=== PATIENT | male | born 1980 | race African-American/Black ===

== ENCOUNTER 2017-05-27 16:50 | Emergency (ER) | payer SELFPAY ==
[~2017-05-27] VITALS: Ht 177.8 cm; Wt 97.5 kg
[~2017-05-27 16:50] MED LIST: ALBU8I INH; FLUT1SPR9 EACH NARE; LEVA500T PO; OMEP20TA39 PO; SIME80CH CHEW
[2017-05-27 16:52] VITALS: BP 133/76; PULSE 69; RESP 14; TEMP 98.5; O2SAT 97
[2017-05-27] MEDS ORDERED: IBUP800T23 PO (18:38)
--- NOTE | 2017-05-27 18:39 | PD ---
HPI Chief Complaint: Skin Problem Time Seen by Provider: 18:36 Travel History International Travel<30 days: No Contact w/Intl Traveler<30days: No Traveled to known affect area: No History of Present Illness HPI 36-year-old male with with complaint of 3 different lacerations; one to the right forearm, right hand, and right fourth finger from hitting glass today. He is not up-to-date on his tetanus vaccination declined tetanus at this time. Denies paresthesias, loss of sensation, decreased range motion, decreased strength to the affected hand and extremity. Denies fever, vomiting. Has no other medical complaints. Symptoms are mild in severity. Denies allergies. No other modifying factors or associated signs and symptoms. PFSH Past Medical History Hx Anticoagulant Therapy: No Cardiovascular Problems: No Chemotherapy: No Cerebrovascular Accident: No Diabetes: No Diminished Hearing: No Respiratory: No Social History Alcohol Use: Yes Tobacco Use: Yes Substance Use: Yes (MARIJUANA) Allergies-Medications (Allergen,Severity, Reaction): Coded Allergies: No Known Allergies (Verified , 05/27/17) Reported Meds & Prescriptions Reported Meds & Active Scripts Active Ibuprofen 800 Mg Tab 800 Mg PO Q6HR PRN Review of Systems Except as stated in HPI: all other systems reviewed are Neg Physical Exam Narrative GENERAL: Well-nourished, well-developed male patient, in no acute distress SKIN: Warm and dry. Right anterior distal wrist with approximately once an liter cut. Right thenar eminence area with approximately 1.5 centimeter laceration. Right fourth finger in between the PIP and DIP joints with approximately 1cm cut/skin tear. All areas with bleeding controlled. No signs of infection. Right hand with full range of motion at all finger joints and sensory intact. HEAD: Atraumatic. Normocephalic. EYES: Pupils equal and round. No scleral icterus. No injection or drainage. ENT: Mucosa pink and moist. Airway patent. NECK: Trachea midline. CARDIOVASCULAR: Regular rate. RESPIRATORY: No accessory muscle use. GASTROINTESTINAL: Flat. MUSCULOSKELETAL: No obvious deformities. No clubbing. No cyanosis. No edema. NEUROLOGICAL: Awake and alert. Oriented 3. No obvious cranial nerve deficits. Motor grossly within normal limits. Normal speech. PSYCHIATRIC: Appropriate mood and affect; insight and judgment normal. Data Data Last Documented VS Vital Signs Date Time Temp Pulse Resp B/P Pulse Ox O2 Delivery O2 Flow Rate FiO2 8/16/17 16:52 98.5 69 14 133/76 97 Room Air MDM Medical Decision Making Medical Screen Exam Complete: Yes Emergency Medical Condition: Yes Medical Record Reviewed: Yes Differential Diagnosis Cut, laceration, abrasion Narrative Course 36-year-old male with cuts to his right forearm and right fourth finger. And a laceration to his right hand to the thenar eminence area. He is not up-to-date on his tetanus vaccination and declines tetanus at this time. See my Procedure note laceration repair. Ibuprofen prescribed for home. Instructed patient to follow up with primary care provider. Patient verbalizes understanding and agreement with treatment plan. Patient is medically cleared and stable for discharge. Discussed reasons to return to the emergency department. Patient agrees with treatment plan. The patients vital signs are stable and the patient is stable for outpatient follow-up and treatment. Patient discharged home, stable and in no acute distress. Procedures Procedure Narrative LACERATION LOCATION: Right thenar eminence LENGTH: 1.5 cm NUMBER OF STITCHES/MARCELLA: 3 simple interrupted sutures REPAIR: The area of the laceration was prepped with Betadine and sterilely draped. The laceration was infiltrated with 1% lidocaine. The wound was copiously irrigated and explored without evidence of foreign body, tendon injury or neurovascular injury. The wound was closed using 4-0 Prolene. This was a single layer repair. A sterile dressing was applied. The patient was advised to keep the dressing clean and dry. Patient tolerated the procedure well. Diagnosis Primary Impression: Cut Additional Impressions: Cut of finger Laceration of right hand Qualified Code: S61.411A - Laceration of right hand without foreign body, initial encounter Referrals: Primary Care Physician Patient Instructions: Care For Your Stitches (ED), Finger Laceration (ED), General Instructions, Laceration (ED) Departure Forms: Tests/Procedures, Work Release Enter return to work date: May 29, 2017 Additional Instructions: Keep area clean and dry Ibuprofen Or Tylenol as directed and as needed for pain and inflammation Ice pack to area as needed to decrease pain Return to the emergency department or follow-up with primary care provider in 7- 10 days for suture removal Follow up with primary care provider within 2-4 days Return to the emergency department immediately with worsening of symptoms, particularly if reddened streaks up or down the affected extremity from the suture site, fever, numbness/tingling in the affected extremity, loss of sensation in the affected extremity, severe swelling of the affected Med/Other Pt SpecificInfo: Prescription(s) given Scripts Ibuprofen 800 Mg Dep491 Mg PO Q6HR PRN (PAIN) #30 TAB Ref 0 Prov:Kimberly Garcia 05/27/17 Disposition: 01 DISCHARGE HOME Condition: Stable Kimberly Garcia May 27, 2017 18:38
[2017-05-28] MEDS ORDERED: ULTR50TA5 PO (01:37)
[2017-05-28] MEDS ORDERED: ZOFR4TAB3 SL (01:37)
== END 2017-05-27 19:09 | disposition home or self-care (01) ==
LOC: NEPK 16:50
DX: S61.411A Laceration without foreign body of right hand, initial encounter (principal); W25.XXXA Contact with sharp glass, initial encounter
CPT/HCPCS: 12001

== ENCOUNTER 2017-05-28 00:08 | Emergency (ER) | payer SELFPAY ==
[~2017-05-28] VITALS: Ht 177.8 cm; Wt 97.0 kg
[~2017-05-28 00:08] MED LIST changes: -ALBU8I INH; -FLUT1SPR9 EACH NARE; +IBUP800T23 PO; -LEVA500T PO; -OMEP20TA39 PO; -SIME80CH CHEW
[2017-05-28 00:10] VITALS: BP 143/84; PULSE 66; RESP 14; TEMP 99.1; O2SAT 96
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
--- NOTE | 2017-05-28 01:36 | RADRPT ---
EXAM DATE/TIME: 05/28/2017 01:20 [facility] COMPARISON: No previous studies available for comparison. INDICATIONS : Headaches with dizziness. RADIATION DOSE: 35.51 CTDIvol (mGy) MEDICAL HISTORY : None SURGICAL HISTORY : None. ENCOUNTER: Initial ACUITY: 1 day PAIN SCALE: 2/10 LOCATION: cranial TECHNIQUE: Multiple contiguous axial images were obtained of the head. Using automated exposure control and adj ustment of the mA and/or kV according to patient size, radiation dose was kept as low as reasonably a chievable to obtain optimal diagnostic quality images. DICOM format image data is available electro nically for review and comparison. FINDINGS: CEREBRUM: The ventricles are normal for age. No evidence of midline shift, mass lesion, hemorrhage or acute in farction. No extra-axial fluid collections are seen. POSTERIOR FOSSA: The cerebellum and brainstem are intact. The 4th ventricle is midline. The cerebellopontine angle i s unremarkable. EXTRACRANIAL: The visualized portion of the orbits is intact. SKULL: The calvaria is intact. No evidence of skull fracture. CONCLUSION: Negative noncontrast CT brain. Dewayne Aparicio MD on May 28, 2017 at 1:34 Board Certified Radiologist. This report was verified electronically.
[2017-05-28] MEDS ORDERED: ZOFR4TAB3 SL (01:37)
[2017-05-28] MEDS ORDERED: ULTR50TA5 PO (01:37)
== END 2017-05-28 02:18 | disposition home or self-care (01) ==
LOC: NEPC 00:08
DX: S06.0X0A Concussion without loss of consciousness, initial encounter (principal); S00.83XA Contusion of other part of head, initial encounter; R42 Dizziness and giddiness; Z72.0 Tobacco use; W18.30XA Fall on same level, unspecified, initial encounter
CPT/HCPCS: 70450; 99284

== ENCOUNTER 2017-06-09 13:58 | Emergency (ER) | payer OTHER ==
[~2017-06-09 13:58] MED LIST changes: +ULTR50TA5 PO; +ZOFR4TAB3 SL
[2017-06-09 14:00] VITALS: BP 143/74; PULSE 59; RESP 14; TEMP 98.4; O2SAT 98
--- NOTE | 2017-06-09 14:25 | PD ---
HPI . suture removal Chief Complaint: Wound/Suture/Staple Re-Check Time Seen by Provider: 14:16 Travel History International Travel<30 days: No Contact w/Intl Traveler<30days: No Traveled to known affect area: No History of Present Illness HPI 37- year old male presents to the ED to have three sutures on his right hand removed. The patient reports the sutures were initially placed 05/27/17 or 05/28 due to a laceration from glass. PFSH Past Medical History Hx Anticoagulant Therapy: No Cardiovascular Problems: No Chemotherapy: No Cerebrovascular Accident: No Diabetes: No Diminished Hearing: No Respiratory: No Social History Alcohol Use: Yes Tobacco Use: Yes Substance Use: Yes (MARIJUANA) Allergies-Medications (Allergen,Severity, Reaction): Coded Allergies: No Known Allergies (Verified , 06/09/17) Reported Meds & Prescriptions Reported Meds & Active Scripts Active No Active Prescriptions or Reported Medications Review of Systems General / Constitutional: No: Fever, Chills, Weight Gain, Weight Loss, Other Eyes: No: Diploplia, Blurred Vision, Photophobia, Drainage, Redness, Foreign Body Sensation, Pain, Tearing, Blind Spots, Visual changes, Blindness, Other HENT: No: Headaches, Vertigo, Lightheadedness, Sore Throat, Rhinitis, Rhinorrhea, Congestion, Nosebleed, Neck Stiffness, Neck Pain, Masses, Gingival Bleeding, Dental Difficulties, Ear Discharge, Earache, Other Cardiovascular: No: Chest Pain or Discomfort, Palpitations, Irregular Rhythm, Tachycardia, Diaphoresis, Syncope, Dyspnea on exertion, Varicosities, Edema, Cyanosis, Varicosities, Phlebitis, Claudication, Other Respiratory: No: Cough, Shortness of Breath, Wheezing, Sneezing, Orthopnea, Hemoptysis, Stridor, Night Sweats, Pleuritic Pain, Other Gastrointestinal: No: Nausea, Vomiting, Diarrhea, Abdominal Pain, Hematemesis, Hematochezia, Constipation, Changes in Bowel Habits, Indigestion, Dysphagia, Loss of Appetite, Other Genitourinary: No: Urgency, Frequency, Dysuria, Nocturia, Hematuria, Decreased Urinary Output, Oliguria, Hesitancy, Dribbling, Incontinence, Pelvic Pain, Flank Pain, Dyspareunia, Discharge, Dysmenorrhea, Menorrhagia, Metorrhagia, Vaginal Bleeding, Other Musculoskeletal: No: Myalgias, Arthralgias, Limited ROM, Weakness, Cramping, Edema, Pain, Atrophy, Other Skin: Positive Other (Healing laceration to right hand), No Rash, No Itching, No Dryness, No Lumps, No Hives, No Change in Pigmentation, No Change in nails, No Alopecia, No Lesions, No Breast Lumps, No Breast Tenderness, No Breast Swelling Neurologic: No: Weakness, Dizziness, Syncope, Focal Abnormalities, Coordination Problem, Tremor, Ataxia, Headache, Change in Mentation, Slurred Speech, Paresthesia, Incontinence, Seizures, Sensory Disturbance, Other Psychiatric: No: Anxiety, Depression, Suicidal Ideations, Disorder of Thought, Mood Disorder, Substance Abuse, Homicidal Ideation, Other Endocrine: No: Heat Intolerance, Cold Intolerance, Polyuria, Polydipsia, Other Hematologic/Lymphatic: No: Easy Bruising, Lymph Node Enlargement, Other Physical Exam Narrative GENERAL: AAO x 3. NAD. SKIN: Warm and dry.Healed laceration to right hand with [address], no evidence of infection HEAD: Atraumatic. Normocephalic. EYES: Pupils equal and round. No scleral icterus. No injection or drainage. ENT: No nasal bleeding or discharge. Mucous membranes pink and moist. NECK: Trachea midline. No JVD. CARDIOVASCULAR: Regular rate and rhythm. RESPIRATORY: No accessory muscle use. Clear to auscultation. Breath sounds equal bilaterally. GASTROINTESTINAL: Visual inspection appears normal. MUSCULOSKELETAL: Extremities without clubbing, cyanosis, or edema. No obvious deformities. NEUROLOGICAL: Awake and alert. No obvious cranial nerve deficits. Motor grossly within normal limits. Five out of 5 muscle strength in the arms and legs. Normal speech. PSYCHIATRIC: Appropriate mood and affect; insight and judgment normal. Data Data Last Documented VS Vital Signs Date Time Temp Pulse Resp B/P (MAP) Pulse Ox O2 Delivery O2 Flow Rate FiO2 06/09/17 14:33 06/09/17 14:00 98.4 59 14 98 MDM Medical Decision Making Medical Screen Exam Complete: Yes Emergency Medical Condition: Yes Medical Record Reviewed: Yes Differential Diagnosis Suture Removal, wound dehiscence, cellulitis Narrative Course 37-year-old male here for suture removal to his right palm. There is no evidence of wound dehiscence or cellulitis. Patient gave verbal consent to removal. 3 sutures removed without incident. Patient verbalized understanding of instructions, questions were answered, and thanked me for their care. I advised them if their condition worsens, please return to the nearest emergency room for further care. Procedures Procedure Narrative suture removal patient gave verbal consent area cleaned and 3 sutures removed patient tolerated w/o incident Diagnosis Primary Impression: Visit for suture removal Patient Instructions: General Instructions Med/Other Pt SpecificInfo: No Change to Meds Scripts No Active Prescriptions or Reported Meds Disposition: 01 DISCHARGE HOME Condition: Stable Cara Jackson Jun 09, 2017 14:25
== END 2017-06-09 15:00 | disposition home or self-care (01) ==
LOC: NEPK 13:58
DX: Z48.02 Encounter for removal of sutures (principal); Z72.0 Tobacco use
CPT/HCPCS: 99281

== ENCOUNTER 2017-07-06 18:33 | Emergency (ER) | payer OTHER ==
[~2017-07-06] VITALS: Ht 177.8 cm; Wt 102.0 kg
[2017-07-06 18:41] VITALS: BP 183/80; PULSE 75; RESP 16; TEMP 98.6
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
[2017-07-06 19:15] LABS: AUTOMATED NEUTROPHIL # 3.1 TH/MM3 (1.8-7.7); BASOPHIL % 0.5 % (0.0-2.0); EOSINOPHIL # 0.1 TH/MM3 (0-0.4); EOSINOPHIL % 1.9 % (0.0-4.0); HEMATOCRIT 43.2 % (39.0-51.0); HEMO FLAGS DIFF FINAL; LYMPHOCYTE # 2.3 TH/MM3 (1.0-4.8); MEAN CELL VOLUME 94.7 FL (80.0-100.0); MEAN CORPUSCULAR HEMOGLOBIN 31.1 PG (27.0-34.0); MEAN CORPUSCULAR HGB CONC 32.8 % (32.0-36.0); MONO % 10.9 % (0.0-8.0); NEUT % 49.7 % (16.0-70.0); PLATELET COUNT 204 TH/MM3 (150-450); RED BLOOD COUNT 4.56 MIL/MM3 (4.50-5.90); RED CELL DISTRIBUTION WIDTH 13.5 % (11.6-17.2); WHITE BLOOD COUNT 6.3 TH/MM3 (4.0-11.0)
[2017-07-06 19:35] LABS: BICARBONATE 26.3 MEQ/L (21.0-32.0); POTASSIUM 4.2 MEQ/L (3.5-5.1)
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
== END 2017-07-06 20:44 | disposition home or self-care (01) ==
LOC: NEPD 18:33
DX: S16.1XXA Strain of muscle, fascia and tendon at neck level, initial encounter (principal); M54.6 Pain in thoracic spine; V89.2XXA Person injured in unspecified motor-vehicle accident, traffic, initial encounter
CPT/HCPCS: 71010; 72125; 80048; 80307; 85025; 99285

== ENCOUNTER 2017-10-16 17:07 | Emergency (ER) | payer SELFPAY ==
[~2017-10-16] VITALS: Ht 180.3 cm; Wt 100.0 kg
[2017-10-16 17:08] VITALS: BP 170/77; PULSE 67; RESP 16; TEMP 99; O2SAT 95
[2017-10-16] MEDS ORDERED: IBUP1TAB7 PO (18:41)
[2017-10-16] MEDS ORDERED: AMOX500C PO (18:41)
--- NOTE | 2017-10-16 18:41 | PD ---
HPI Chief Complaint: ENT Complaint Time Seen by Provider: 18:25 Travel History International Travel<30 days: No Contact w/Intl Traveler<30days: No Traveled to known affect area: No History of Present Illness HPI 37-year-old male presents to emergency department complaining of right ear pain 1 week. Denies ear drainage. Reports nasal congestion. Denies sore throat, cough. Denies fevers. Denies nausea, vomiting. Has not taken any medication or tried any treatments to alleviate his symptoms. No known relieving or aggravating factors. Symptoms are mild in severity. Rates pain 7/10. Describes it as a throbbing sensation. Pain radiates to his temporal area. No primary care provider. No known allergies. Denies significant past medical history. Has no other medical complaints. No other modifying factors or associated signs and symptoms. PFSH Past Medical History Hx Anticoagulant Therapy: No Cardiovascular Problems: No Chemotherapy: No Cerebrovascular Accident: No Diabetes: No Diminished Hearing: No Respiratory: No Past Surgical History Prostatectomy: Yes Social History Alcohol Use: Yes Tobacco Use: Yes Substance Use: Yes ("weed") Allergies-Medications (Allergen,Severity, Reaction): Coded Allergies: No Known Allergies (Verified , 06/29/17) Reported Meds & Prescriptions Reported Meds & Active Scripts Active Ibuprofen 800 Mg Tab 800 Mg PO Q6HR PRN Amoxicillin 500 Mg Cap 500 Mg PO BID 10 Days Review of Systems Except as stated in HPI: all other systems reviewed are Neg Physical Exam Narrative GENERAL: Well-nourished, well-developed black male patient, in no acute distress ; afebrile, nontoxic-appearing SKIN: Warm and dry. No rash. HEAD: Atraumatic. Normocephalic. EYES: Pupils equal and round. No scleral icterus. No injection or drainage. EARS: Bilateral pinnae and external canals appear within normal limits. Right tympanic membrane with erythema, loss of landmarks, and with dullness; without perforation. ENT: Mucosa pink and moist. Oral Pharynx without erythema; without edema or exudates. No uvular edema. No uvular, palatal, or tonsillar deviation. Airway patent. NECK: Trachea midline. No lymphadenopathy. CARDIOVASCULAR: Regular rate. RESPIRATORY: No accessory muscle use. GASTROINTESTINAL: Flat. MUSCULOSKELETAL: No obvious deformities. No clubbing. No cyanosis. No edema. NEUROLOGICAL: Awake and alert. Oriented 3. No obvious cranial nerve deficits. Motor grossly within normal limits. Normal speech. Moves all extremities. 5/5 strength to all extremities. PSYCHIATRIC: Appropriate mood and affect; insight and judgment normal. Data Data Last Documented VS Vital Signs Date Time Temp Pulse Resp B/P (MAP) Pulse Ox O2 Delivery O2 Flow Rate FiO2 10/16/17 17:08 99.0 67 16 170/77 (108) 95 Room Air MDM Medical Decision Making Medical Screen Exam Complete: Yes Emergency Medical Condition: Yes Medical Record Reviewed: Yes Differential Diagnosis Otitis media, otitis externa, foreign body, cerumen impaction Narrative Course 37-year-old male with right otitis media. Afebrile nontoxic appearing. Denies fever, vomiting. Amoxicillin, ibuprofen prescribed for home. Instructed patient to follow up with primary care provider. Patient verbalizes understanding and agreement with treatment plan. Patient is medically cleared and stable for discharge. Discussed reasons to return to the emergency department. Patient agrees with treatment plan. The patients vital signs are stable and the patient is stable for outpatient follow-up and treatment. Patient discharged home, stable and in no acute distress. Diagnosis Primary Impression: Otitis media, right Qualified Codes: H66.91 - Otitis media, unspecified, right ear Referrals: Primary Care Physician Patient Instructions: General Instructions, Serous Otitis Media (ED) Additional Instructions: Take antibiotics as prescribed and complete full course Ibuprofen or Tylenol as directed and as needed to reduce pain and fever [id number] antihistamines or decongestants as directed and as needed for symptom management Avoid getting water in the ears Do not put anything in the ears; including Q-tips Follow-up with primary care provider Return to the emergency department immediately with worsening of symptoms Med/Other Pt SpecificInfo: Prescription(s) given Scripts Ibuprofen (Ibuprofen) 800 Mg Tab 800 MG PO Q6HR Y for PAIN, #30 TAB 0 Refills Prov: Kimberly Garcia 10/16/17 Amoxicillin (Amoxicillin) 500 Mg Cap 500 MG PO BID for Infection for 10 Days, #20 CAP 0 Refills Prov: Kimberly Garcia 10/16/17 Disposition: 01 DISCHARGE HOME Condition: Stable Kimberly Garcia Oct 16, 2017 18:41
== END 2017-10-16 18:57 | disposition home or self-care (01) ==
LOC: NEPD 17:07
DX: H66.91 Otitis media, unspecified, right ear (principal); Z72.0 Tobacco use
CPT/HCPCS: 99283

== ENCOUNTER 2017-10-30 14:20 | Emergency (ER) | payer SELFPAY ==
[~2017-10-30] VITALS: Ht 177.8 cm; Wt 100.0 kg
[~2017-10-30 14:20] MED LIST changes: +AMOX500C PO; +IBUP1TAB7 PO; -IBUP800T23 PO; -ULTR50TA5 PO; -ZOFR4TAB3 SL
[2017-10-30 14:21] VITALS: BP 150/83; PULSE 93; RESP 14; TEMP 97.9; O2SAT 97
--- NOTE | 2017-10-30 15:45 | PD ---
HPI Chief Complaint: ENT Complaint Time Seen by Provider: 15:14 Travel History International Travel<30 days: No Contact w/Intl Traveler<30days: No Traveled to known affect area: No History of Present Illness HPI Patient is a 37-year-old male presenting to emergency department for evaluation of right ear "popping". Patient states that he was in the emergency department last week with ear pain and was prescribed antibiotics, he states that he hasn' t been taking them consistently. He denies any current ear pain but states when he yawns and on occasion randomly has ear popping. He denies any muffled hearing, fever, chills, headache, chest pain, shortness of breath, sore throat or nasal congestion. No alleviating or exacerbating factors, symptoms started randomly and are intermittent. PFSH Past Medical History Medical History: Denies Significant Hx Hx Anticoagulant Therapy: No Respiratory: No Tetanus Vaccination: Unknown Influenza Vaccination: No Past Surgical History Surgical History: No Previous Surgery Prostatectomy: Yes Social History Alcohol Use: Yes (occu) Tobacco Use: Yes (once a day 2-3) Substance Use: Yes ("weed" occu) Allergies-Medications (Allergen,Severity, Reaction): Coded Allergies: No Known Allergies (Verified , 06/29/17) Reported Meds & Prescriptions Reported Meds & Active Scripts Active Ibuprofen 800 Mg Tab 800 Mg PO Q6HR PRN Amoxicillin 500 Mg Cap 500 Mg PO BID 10 Days Review of Systems Except as stated in HPI: all other systems reviewed are Neg HENT: Positive: Earache (popping) Physical Exam Narrative GENERAL: Well-developed, well-nourished, alert male. Resting comfortably in no acute distress. EARS: Bilateral pinnae and external canals appear within normal limits. Bilateral tympanic membranes without erythema, dullness or perforation. SKIN: Warm and dry. HEAD: Normocephalic. EYES: No scleral icterus. No injection or drainage. NECK: Supple, trachea midline. No JVD or lymphadenopathy. CARDIOVASCULAR: Regular rate and rhythm without murmurs, gallops, or rubs. RESPIRATORY: Breath sounds equal bilaterally. No accessory muscle use. GASTROINTESTINAL: Abdomen soft, non-tender, nondistended. MUSCULOSKELETAL: No cyanosis, or edema. BACK: Nontender without obvious deformity. No CVA tenderness. Data Data Last Documented VS Vital Signs Date Time Temp Pulse Resp B/P (MAP) Pulse Ox O2 Delivery O2 Flow Rate FiO2 10/30/17 14:21 97.9 93 14 150/83 (105) 97 [facility] Medical Decision Making Medical Screen Exam Complete: Yes Emergency Medical Condition: No Interpretation(s) Vital Signs Date Time Temp Pulse Resp B/P (MAP) Pulse Ox O2 Delivery O2 Flow Rate FiO2 10/30/17 14:21 97.9 93 14 150/83 (105) 97 Differential Diagnosis Otitis media versus otitis externa versus effusion versus other Narrative Course Patient presented for evaluation of ear popping. He had no other complaints at this time. He has normal vital signs. Exam is unremarkable. A medical screening exam was performed: At the time of evaluation the presenting medical condition was determined not to be of an emergent nature. The patient was given the option of receiving additional care, but declined. Patient was given options for additional community resources from which to obtain care. The Patient Has Been advised to seek medical attention for their presenting complaint. The patient has been advised to return to the ER at any time if an emergent condition develops. Diagnosis Primary Impression: Encounter for medical screening examination Condition: Stable Shirin Tobias Oct 30, 2017 15:45
== END 2017-10-30 15:47 | disposition left against medical advice (07) ==
LOC: NEPK 14:20
DX: H93.8X1 Other specified disorders of right ear (principal)
CPT/HCPCS: 99281; 99282

== ENCOUNTER 2018-03-01 02:44 | Emergency (ER) | payer SELFPAY ==
[2018-03-01 02:46] VITALS: BP 156/74; PULSE 102; RESP 15; TEMP 98.2; O2SAT 98
[2018-03-01 02:58] VITALS: BP 155/79; PULSE 92; RESP 15; O2SAT 96; O2SAT 97
[2018-03-01] MEDS ORDERED: ONDANSETRON ODT 4 MG TAB PO ONE (03:00)
[2018-03-01] MEDS ORDERED: SODIUM CHLORIDE 0.9% FLUSH 10 ML FLUSH IVF PRN (03:00)
[2018-03-01] MEDS ORDERED: ASPIRIN 81 MG CHEW TAB PO ONE (03:00)
[2018-03-01] MEDS ORDERED: MORPHINE SULFATE 4 MG/ML INJ IV PUSH ONE (03:00)
[2018-03-01] MEDS ORDERED: SODIUM CHLORID 0.9% 500 ML INJ 500 ML IV ONE (03:00)
--- NOTE | 2018-03-01 03:02 | PD ---
HPI Chief Complaint: Chest Pain Time Seen by Provider: 02:50 Travel History International Travel<30 days: No Contact w/Intl Traveler<30days: No Traveled to known affect area: No History of Present Illness HPI The patient is a 37-year-old male who presents to the emergency department for chest pain. The patient states he was smoking marijuana earlier tonight, blunt, when he developed chest pain. The chest pain is substernal, nonradiating, described as pressure, and similar to previous episodes when he smokes marijuana. He denies any history of hypertension, hyperlipidemia, diabetes, CAD, or family history of early heart disease. He does have a history of tobacco use. He denies any shortness of breath, nausea, vomiting, or diaphoresis. Symptoms are moderate. He denies any exertional symptoms. PFSH Past Medical History Medical History: Denies Significant Hx Hx Anticoagulant Therapy: No Cardiovascular Problems: No Chemotherapy: No Cerebrovascular Accident: No Diabetes: No Diminished Hearing: No Respiratory: No ?: Not Past Surgical History Surgical History: No Previous Surgery Prostatectomy: Yes Social History Alcohol Use: Yes (occu) Tobacco Use: Yes ("2-3 black and mild per day") Substance Use: Yes (marijuana) Allergies-Medications (Allergen,Severity, Reaction): Coded Allergies: No Known Allergies (Verified Adverse Reaction, Unknown, 03/01/18) Reported Meds & Prescriptions Reported Meds & Active Scripts Active No Active Prescriptions or Reported Medications Review of Systems Except as stated in HPI: all other systems reviewed are Neg General / Constitutional: No: Fever HENT: No: Lightheadedness Cardiovascular: Positive: Chest Pain or Discomfort, No: Dyspnea on exertion Respiratory: No: Cough, Shortness of Breath Gastrointestinal: No: Nausea, Vomiting Musculoskeletal: No: Edema Neurologic: No: Dizziness Physical Exam Narrative GENERAL: Awake, alert, nontoxic-appearing 37-year-old male who appears his stated age and is in no acute respiratory distress. SKIN: Focused skin assessment warm/dry. HEAD: Atraumatic. Normocephalic. EYES: Pupils equal and round. Bilateral injection. ENT: No nasal bleeding or discharge. Mucous membranes pink and moist. NECK: Trachea midline. No JVD. CARDIOVASCULAR: Regular rate and rhythm. No murmur appreciated. Heart rate in the 90s. Chest wall is nontender to palpation. RESPIRATORY: No accessory muscle use. Clear to auscultation. Breath sounds equal bilaterally. GASTROINTESTINAL: Abdomen soft, non-tender, nondistended. No rebound tenderness. MUSCULOSKELETAL: No obvious deformities. No clubbing. No cyanosis. No edema. NEUROLOGICAL: Awake and alert. No obvious cranial nerve deficits. Motor grossly within normal limits. Normal speech. PSYCHIATRIC: Appropriate mood and affect; insight and judgment normal. Data Data Last Documented VS Vital Signs Date Time Temp Pulse Resp B/P (MAP) Pulse Ox O2 Delivery O2 Flow Rate FiO2 03/01/18 04:58 86 16 151/68 (95) 99 Room Air 03/01/18 02:46 98.2 Orders Orders Electrocardiogram (03/01/18 ) Electrocardiogram (03/01/18 02:56) Ckmb (Isoenzyme) Profile (03/01/18 02:56) Complete Blood Count With Diff (03/01/18 02:56) Comprehensive Metabolic Panel (03/01/18 02:56) Magnesium (Mg) (03/01/18 02:56) Prothrombin Time / Inr (Pt) (03/01/18 02:56) Act Partial Throm Time (Ptt) (03/01/18 02:56) Troponin I (03/01/18 02:56) Ecg Monitoring (03/01/18 02:56) Bilateral Bp Monitoring (03/01/18 02:56) Iv Access Insert/Monitor (03/01/18 02:56) Oximetry (03/01/18 02:56) Oxygen Administration (03/01/18 02:56) Aspirin Chew (Aspirin Chew) (03/01/18 03:00) Morphine Inj (Morphine Inj) (03/01/18 03:00) Sodium Chloride 0.9% Flush (Ns Flush) (03/01/18 03:00) Sodium Chlorid 0.9% 500 Ml Inj (Ns 500 M (03/01/18 03:00) Chest, Pa & Lat (03/01/18 02:56) Ondansetron Odt (Zofran Odt) (03/01/18 03:00) CKMB (03/01/18 03:04) CKMB% (03/01/18 03:04) Troponin I (03/01/18 05:00) Labs Laboratory Tests Test 03/01/18 03:04 03/01/18 04:53 White Blood Count 10.0 TH/MM3 Red Blood Count 4.82 MIL/MM3 Hemoglobin 15.6 GM/DL Hematocrit 45.0 % Mean Corpuscular Volume 93.4 FL Mean Corpuscular Hemoglobin 32.4 PG Mean Corpuscular Hemoglobin Concent 34.7 % Red Cell Distribution Width 13.8 % Platelet Count 208 TH/MM3 Mean Platelet Volume 8.0 FL Neutrophils (%) (Auto) 54.7 % Lymphocytes (%) (Auto) 32.7 % Monocytes (%) (Auto) 10.1 % Eosinophils (%) (Auto) 2.0 % Basophils (%) (Auto) 0.5 % Neutrophils # (Auto) 5.5 TH/MM3 Lymphocytes # (Auto) 3.3 TH/MM3 Monocytes # (Auto) 1.0 TH/MM3 Eosinophils # (Auto) 0.2 TH/MM3 Basophils # (Auto) 0.0 TH/MM3 CBC Comment DIFF FINAL Differential Comment Prothrombin Time 10.1 SEC Prothromb Time International Ratio 1.0 RATIO Activated Partial Thromboplast Time 23.5 SEC Blood Urea Nitrogen 20 MG/DL Creatinine 1.82 MG/DL Random Glucose 132 MG/DL Total Protein 7.2 GM/DL Albumin 4.3 GM/DL Calcium Level 8.5 MG/DL Magnesium Level 1.7 MG/DL Alkaline Phosphatase 54 U/L Aspartate Amino Transf (AST/SGOT) 29 U/L Alanine Aminotransferase (ALT/SGPT) 26 U/L Total Bilirubin 0.3 MG/DL Sodium Level 139 MEQ/L Potassium Level 3.5 MEQ/L Chloride Level 101 MEQ/L Carbon Dioxide Level 28.2 MEQ/L Anion Gap 10 MEQ/L Estimat Glomerular Filtration Rate 51 ML/MIN Total Creatine Kinase 520 U/L Creatine Kinase MB 4.0 NG/ML Creatine Kinase MB % 0.8 % Troponin I LESS THAN 0.02 NG/ML LESS THAN 0.02 NG/ML MDM Medical Decision Making Medical Screen Exam Complete: Yes Emergency Medical Condition: Yes Medical Record Reviewed: Yes Interpretation(s) EKG reveals normal sinus rhythm with a rate of 99. No ischemic changes or ectopy noted. Last Impressions Chest X-Ray 03/01/18 0256 Signed Impressions: Service Date/Time: Thursday, March 01, 2018 03:11 - CONCLUSION: No acute disease. Chema Martinez MD Laboratory Tests Test 03/01/18 03:04 5/21/18 04:53 White Blood Count 10.0 TH/MM3 Red Blood Count 4.82 MIL/MM3 Hemoglobin 15.6 GM/DL Hematocrit 45.0 % Mean Corpuscular Volume 93.4 FL Mean Corpuscular Hemoglobin 32.4 PG Mean Corpuscular Hemoglobin Concent 34.7 % Red Cell Distribution Width 13.8 % Platelet Count 208 TH/MM3 Mean Platelet Volume 8.0 FL Neutrophils (%) (Auto) 54.7 % Lymphocytes (%) (Auto) 32.7 % Monocytes (%) (Auto) 10.1 % Eosinophils (%) (Auto) 2.0 % Basophils (%) (Auto) 0.5 % Neutrophils # (Auto) 5.5 TH/MM3 Lymphocytes # (Auto) 3.3 TH/MM3 Monocytes # (Auto) 1.0 TH/MM3 Eosinophils # (Auto) 0.2 TH/MM3 Basophils # (Auto) 0.0 TH/MM3 CBC Comment DIFF FINAL Differential Comment Prothrombin Time 10.1 SEC Prothromb Time International Ratio 1.0 RATIO Activated Partial Thromboplast Time 23.5 SEC Blood Urea Nitrogen 20 MG/DL Creatinine 1.82 MG/DL Random Glucose 132 MG/DL Total Protein 7.2 GM/DL Albumin 4.3 GM/DL Calcium Level 8.5 MG/DL Magnesium Level 1.7 MG/DL Alkaline Phosphatase 54 U/L Aspartate Amino Transf (AST/SGOT) 29 U/L Alanine Aminotransferase (ALT/SGPT) 26 U/L Total Bilirubin 0.3 MG/DL Sodium Level 139 MEQ/L Potassium Level 3.5 MEQ/L Chloride Level 101 MEQ/L Carbon Dioxide Level 28.2 MEQ/L Anion Gap 10 MEQ/L Estimat Glomerular Filtration Rate 51 ML/MIN Total Creatine Kinase 520 U/L Creatine Kinase MB 4.0 NG/ML Creatine Kinase MB % 0.8 % Troponin I LESS THAN 0.02 NG/ML LESS THAN 0.02 NG/ML Differential Diagnosis Differential diagnosis includes acute coronary syndrome, pneumonitis, pneumothorax, GERD, esophageal spasm, costochondritis, marijuana side effect. Narrative Course IV was established, labs were drawn and sent, and the patient was placed on cardiac telemetry monitoring and continuous pulse oximetry monitoring. EKG was ordered and interpreted. The patient was ordered aspirin, morphine, Zofran, and IV fluids. The patient declined morphine. Chest x-ray was obtained. The patient's chest x-ray was unremarkable. The patient's initial troponin is negative, 3 hour troponin from the onset of his symptoms was ordered at 5 AM. The patient's creatinine was elevated, I did review the EMR, he does have a history of chronic kidney disease. The patient's second troponin was less than 0.02. The patient is advised to stop smoking marijuana if he develops the symptoms after smoking marijuana. He is advised to follow-up with a primary physician. He may benefit from outpatient follow-up with nephrology in regards to his chronic kidney disease. Diagnosis Primary Impression: Atypical chest pain Additional Impression: Chronic kidney disease Qualified Codes: N18.9 - Chronic kidney disease, unspecified Patient Instructions: General Instructions Additional Instructions: Please provide the patient a copy of his lab results and x-ray results at discharge. Follow-up with nephrology in regards to your chronic kidney disease. Stop smoking marijuana. Return if symptoms worsen or progress. Med/Other Pt SpecificInfo: No Change to Meds Scripts No Active Prescriptions or Reported Meds Disposition: 01 DISCHARGE HOME Condition: Stable Elías Riddle MD March 01, 2018 03:02
[2018-03-01 03:16] LABS: AUTOMATED NEUTROPHIL # 5.5 TH/MM3 (1.8-7.7); BASOPHIL % 0.5 % (0.0-2.0); EOSINOPHIL # 0.2 TH/MM3 (0-0.4); HEMOGLOBIN 15.6 GM/DL (13.0-17.0); LYMPH % 32.7 % (9.0-44.0); LYMPHOCYTE # 3.3 TH/MM3 (1.0-4.8); MEAN CELL VOLUME 93.4 FL (80.0-100.0); MEAN CORPUSCULAR HEMOGLOBIN 32.4 PG (27.0-34.0); MEAN CORPUSCULAR HGB CONC 34.7 % (32.0-36.0); MONO % 10.1 % (0.0-8.0); NEUT % 54.7 % (16.0-70.0); PLATELET COUNT 208 TH/MM3 (150-450); RED BLOOD COUNT 4.82 MIL/MM3 (4.50-5.90); RED CELL DISTRIBUTION WIDTH 13.8 % (11.6-17.2)
--- NOTE | 2018-03-01 03:22 | RADRPT ---
EXAM DATE/TIME: 03/01/2018 03:11 [facility] COMPARISON: No previous studies available for comparison. INDICATIONS : Short of breath. MEDICAL HISTORY : None. SURGICAL HISTORY : None. ENCOUNTER: Initial ACUITY: 1 day PAIN SCORE: 3/10 LOCATION: Bilateral chest FINDINGS: PA and lateral views of the chest demonstrate the lungs to be symmetrically aerated without evidence of mass, infiltrate or effusion. The cardiomediastinal contours are unremarkable. Osseous structure s are intact. There are multiple overlying electrocardiogram leads. CONCLUSION: No acute disease. Chema Martinez MD on March 01, 2018 at 3:20 Board Certified Radiologist. This report was verified electronically.
[2018-03-01 03:31] LABS: PROTHROMBIN TIME - PATIENT 10.1 SEC (9.8-11.6)
[2018-03-01 03:49] LABS: ALBUMIN 4.3 GM/DL (3.4-5.0); ALKALINE PHOSPHATASE 54 U/L (45-117); ALT (GPT) 26 U/L (12-78); AST (GOT) 29 U/L (15-37); BICARBONATE 28.2 MEQ/L (21.0-32.0); BLOOD UREA NITROGEN 20 MG/DL (7-18); CALCIUM 8.5 MG/DL (8.5-10.1); CHLORIDE 101 MEQ/L (98-107); CREATININE 1.82 MG/DL (0.60-1.30); GLOMERULAR FILTRATION RATE 51 ML/MIN (>89); GLUCOSE,RANDOM 132 MG/DL (74-106); MAGNESIUM 1.7 MG/DL (1.5-2.5); SODIUM (NA) 139 MEQ/L (136-145); TOTAL BILIRUBIN ADULT 0.3 MG/DL (0.2-1.0); TOTAL PROTEIN 7.2 GM/DL (6.4-8.2); TROPONIN I LESS THAN 0.02 NG/ML (0.02-0.05)
[2018-03-01 04:03] VITALS: BP 146/79; PULSE 81; RESP 16; O2SAT 97
[2018-03-01 04:58] VITALS: BP 151/68; PULSE 86; RESP 16; O2SAT 99
--- NOTE | 2018-03-01 08:00 | EKG ---
Date Performed: 03/01/2018 Time Performed: 02:53:39 PTAGE: 37 years EKG: Sinus rhythm NORMAL ECG NO PREVIOUS TRACING DOCTOR: Mayur Del Cid Interpretating Date/Time 03/01/2018 07:59:00
== END 2018-03-01 06:01 | disposition home or self-care (01) ==
LOC: NEPC 02:44
DX: R07.89 Other chest pain (principal); F12.90 Cannabis use, unspecified, uncomplicated; F17.210 Nicotine dependence, cigarettes, uncomplicated; N18.9 Chronic kidney disease, unspecified
CPT/HCPCS: 71046; 80053; 82550; 82552; 83735; 84484; 85025; 85610; 85730; 93005; 96361; 96374; 99285; J7040

== ENCOUNTER 2018-08-24 20:02 | Observation (INO) ==
[2018-08-24 23:01] LABS: Baso % (Auto) 0.3 % (0.0-2.0); Eos # (Auto) 0.1 th/mm3 (0.0-0.4); Eos % (Auto) 1.2 % (0.0-4.0); Hematocrit 46.2 % (39.0-51.0); Hemoglobin 15.4 gm/dL (13.0-17.0); Lymph # (Auto) 4.9 th/mm3 (1.0-4.8); Mean Corpuscular HGB Conc 33.3 % (32.0-36.0); Mean Corpuscular Hemoglobin 31.2 pg (27.0-34.0); Mean Corpuscular Volume 93.5 fL (80.0-100.0); Mean Platelet Volume 7.7 fL (7.0-11.0); Mono # (Auto) 0.8 th/mm3 (0.0-0.9); Mono % (Auto) 8.3 % (0.0-8.0); Neut # (Auto) 3.4 th/mm3 (1.8-7.7); Neut % (Auto) 37.2 % (16.0-70.0); Platelet Count 206 th/mm3 (150-450); Red Blood Count 4.94 mil/mm3 (4.50-5.90); Red Cell Distribution Width 14.7 % (11.6-17.2); White Blood Count 9.3 th/mm3 (4.0-11.0)
[2018-08-24 23:17] LABS: Albumin 4.3 g/dL (3.4-5.0); Anion Gap 11 meq/L (5-15); Aspartate Aminotransferase 24 U/L (15-37); Blood Urea Nitrogen 12 mg/dL (7-18); Calcium 8.8 mg/dL (8.5-10.1); Carbon Dioxide 25.5 meq/L (21.0-32.0); Chloride 106 meq/L (98-107); Glomerular Filtration Rate 74 mL/min (>89); Glucose,Random 85 mg/dL (74-106); Potassium 3.9 meq/L (3.5-5.1); Sodium 142 meq/L (136-145)
[2018-08-24 23:18] LABS: Alanine Aminotransferase 29 U/L (12-78)
[2018-08-24 23:22] LABS: Alkaline Phosphatase 56 U/L (45-117); Total Protein 7.6 g/dL (6.4-8.2)
[2018-08-24 23:33] LABS: Atypical Lymphs 7 % (0-0); Eosinophils 3 % (0-4); Lymphocytes 46 % (9-44); Monocytes 6 % (0-8)
[2018-08-24 23:34] LABS: Platelet Estimate Normal (Normal); Platelet Morphology Normal (Normal); RBC Morphology Normal (Normal)
--- NOTE | 2018-08-25 00:15 | ED ---
HPI General Chief complaint: Chest Pain Stated complaint: Chest Pain Time Seen by Provider: 08/25/18 00:03 History of Present Illness HPI narrative: This is a 38-year-old male smoker who presents for evaluation of chest pain. Symptoms started today at 7 [address] He describes it as a dull substernal pain with no obvious aggravating relieving factors. He denies any nausea, vomiting, cough, congestion, shortness of breath, abdominal pain, lower extremity edema, recent travel, recent surgery. He reports that he had similar pain 1 week ago, was seen at an outside hospital but he does not know what tests were performed. He has never had a stress test. He reports family history of coronary artery disease on his father's side. No other complaints at this time. Related Data Home Medications Medication Instructions Recorded Confirmed No Known Home Medications 08/24/18 08/24/18 Allergies Allergy/AdvReac Type Severity Reaction Status Date / Time No Known Allergies Allergy Verified 08/24/18 20:27 Review of Systems ROS: all other systems reviewed are negative PMFSH Social History Social History Substance History: No History of Abuse Second Hand Smoke Exposure: Yes Smoking Status: Light tobacco smoker Tobacco Type: Cigars How Often Do You Have a Drink Containing Alcohol: 2 to 4 times a month Recent Travel in [place] within the Last 8 Weeks: No Recent Out of Country Travel within the Last 8 Weeks: No Immunization History Tetanus Immunization: >5 Years Exam Narrative Exam Narrative: GENERAL: Well-developed well-nourished male no acute distress SKIN: Warm and dry. HEAD: Atraumatic. Normocephalic. EYES: Pupils equal and round. No scleral icterus. No injection or drainage. ENT: No nasal bleeding or discharge. Mucous membranes pink and moist. NECK: Trachea midline. No JVD. CARDIOVASCULAR: Regular rate and rhythm. No murmur appreciated. RESPIRATORY: No accessory muscle use. Clear to auscultation. Breath sounds equal bilaterally. GASTROINTESTINAL: Abdomen soft, non-tender, nondistended. Hepatic and splenic margins not palpable. MUSCULOSKELETAL: No obvious deformities. No clubbing. No cyanosis. No edema. NEUROLOGICAL: Awake and alert. No obvious cranial nerve deficits. Motor grossly within normal limits. Normal speech. PSYCHIATRIC: Appropriate mood and affect; insight and judgment normal. Course Initial Documented Vital Signs Temperature 98.2 F 08/24/18 20:25 Pulse Rate 72 08/24/18 20:25 Respiratory Rate 17 08/24/18 20:25 Blood Pressure 161/69 H 08/24/18 20:25 Pulse Oximetry 99 08/24/18 20:25 Last Documented Vital Signs Temperature 98.2 F 08/24/18 20:25 Pulse Rate 74 08/24/18 23:38 Respiratory Rate 16 08/24/18 23:38 Blood Pressure 147/79 H 08/24/18 23:38 Pulse Oximetry 97 08/24/18 23:38 Medical Decision Making MDM Narrative Medical decision making narrative: The patient was placed on ECG monitoring pulse oximetry. A 12-lead EKG was obtained revealing sinus rhythm, no acute ST elevation. Lab work was obtained in triage which was reassuring. The patient was given a full dose aspirin. The patient reports that this is the second time in the past week that he is experienced a substernal dull chest pain. He has risk factors including tobacco use, family history of coronary artery disease. At this point time the plan would be to admit him into the chest pain center for serial cardiac enzymes and rule out purposes. He is agreeable. Medical Screen Exam Complete: Yes Emergency Medical Condition: Yes Differential Diagnosis Differential Diagnosis: Acute coronary syndrome, pericarditis, myocarditis, aortic dissection, pulmonary embolism, gastritis, pancreatitis, spontaneous pneumothorax Lab Data Result diagrams: 08/24/18 22:50 08/24/18 22:50 Lab Results 08/24/18 08/24/18 Range/Units 22:50 22:50 WBC 9.3 (4.0-11.0) th/mm3 RBC 4.94 (4.50-5.90) mil/mm3 Hgb 15.4 (13.0-17.0) gm/dL Hct 46.2 (39.0-51.0) % MCV 93.5 (80.0-100.0) fL MCH 31.2 (27.0-34.0) pg MCHC 33.3 (32.0-36.0) % RDW 14.7 (11.6-17.2) % Plt Count 206 (150-450) th/mm3 MPV 7.7 (7.0-11.0) fL Prelim Diff (Auto) Slide review pending Neut % (Auto) 37.2 (16.0-70.0) % Lymph % (Auto) 53.0 H (9.0-44.0) % Petroleum % (Auto) 8.3 H (0.0-8.0) % Eos % (Auto) 1.2 (0.0-4.0) % Baso % (Auto) 0.3 (0.0-2.0) % Neut # (Auto) 3.4 (1.8-7.7) th/mm3 Lymph # (Auto) 4.9 H (1.0-4.8) th/mm3 Petroleum # (Auto) 0.8 (0.0-0.9) th/mm3 Eos # (Auto) 0.1 (0.0-0.4) th/mm3 Baso # (Auto) 0.0 (0.0-0.2) th/mm3 WBC Differential Manual diff final Seg Neuts % (Manual) 37 (16-70) % Lymphocytes % (Manual) 46 H (9-44) % Atypical Lymphs % (Man) 7 H (0-0) % Monocytes % (Manual) 6 (0-8) % Eosinophils % (Manual) 3 (0-4) % Basophils % (Manual) 1 (0-2) % Abs Neuts (Manual) 3.4 (1.8-7.7) th/mm3 Differential Comment . Platelet Estimate Normal (Normal) Platelet Morphology Normal (Normal) RBC Morphology Normal (Normal) Sodium 142 (136-145) meq/L Potassium 3.9 (3.5-5.1) meq/L Chloride 106 (98-107) meq/L Carbon Dioxide 25.5 (21.0-32.0) meq/L Anion Gap 11 (5-15) meq/L BUN 12 (7-18) mg/dL Creatinine 1.30 (0.60-1.30) mg/dL Estimated GFR 74 L (>89) mL/min Random Glucose 85 (74-106) mg/dL Calcium 8.8 (8.5-10.1) mg/dL Total Bilirubin 0.4 (0.2-1.0) mg/dL AST 24 (15-37) U/L ALT 29 (12-78) U/L Alkaline Phosphatase 56 (45-117) U/L Troponin I Less than 0.02 L (0.02-0.05) ng/mL Total Protein 7.6 (6.4-8.2) g/dL Albumin 4.3 (3.4-5.0) g/dL Imaging Data Radiologist's impression: Chest X-Ray 08/25/18 00:02 CONCLUSION: No acute cardiopulmonary disease. Discharge Plan Discharge Disposition Patient Disposition: 30 Still Patient Discharge Condition Condition: Stable Discharge Details Diagnosis: Chest pain Physicians Team ED Provider: Carolyn Sheikh ED Midlevel Provider: Omari Fairbanks Primary Care Provider: Primary Care Chika Mason Rxs /Orders / Referrals /Forms Prescriptions: No Action No Known Home Medications RF: 0 Discharge Instructions Patient Printed Instructions: Chest Pain (ED) Discharge Interventions Interventions: Vital Signs Last Done: 08/24/18 23:38 Status ED Status: With Doctor
--- NOTE | 2018-08-25 00:57 | XR ---
EXAM DATE: 08/25/2018 12:32 AM EST AGE/SEX: 38 years / Male INDICATIONS: Chest pain, for 6 hours. CLINICAL DATA: This is the patient's initial encounter. Patient reports that signs and symptoms have been present for 1 day and indicates a pain score of 5/10. MEDICAL/SURGICAL HISTORY: None. None. COMPARISON: [facility], CHEST 1V SINGLE AP, 07/31/2018. . FINDINGS: A single AP view of the chest demonstrates the lungs to be symmetrically aerated without evidence of mass, infiltrate or effusion. The cardiomediastinal contours are unremarkable. Osseous structures a re intact. CONCLUSION: No acute cardiopulmonary disease. Electronically signed by: Chema Martinez MD 08/25/2018 12:55 AM EST
[2018-08-25 02:32] LABS: Creatine Kinase 357 U/L (39-308)
[2018-08-25 02:44] LABS: CKMB Percent 0.6 % (0.0-4.0); Creatine Kinase MB 2.2 ng/mL (0.5-3.6)
[2018-08-25 06:24] LABS: Creatine Kinase 335 U/L (39-308)
[2018-08-25 06:38] LABS: CKMB Percent 0.6 % (0.0-4.0); Creatine Kinase MB 1.9 ng/mL (0.5-3.6)
--- NOTE | 2018-08-25 08:18 | P.HPCA ---
History of Present Illness Primary Care Physician: No Primary Care Physician Chief Complaint: Chest pain History of Present Illness: This is a 38-year-old male without history of hypertension, hyperlipidemia, diabetes, CAD presents to ED with complaint of having intermittent chest discomforts for several months. He is noticed that it only happens after drinking alcohol and smoking, maybe not every time he drinks and smokes but it only occurs after doing it. Usually it is the next day the chest discomfort recurs. States that his discomfort was yesterday and he had drank half pint of liquor the night before and smoked more than his usual. States he drinks about 1/2 pint of liquor twice a week. When the discomfort is there will last for hours. Found nothing to worsen or improve it when it is present. Movements do not seem to change his symptoms. The discomfort is in the center of his chest and does not radiate. Denies nausea or diaphoresis and also denies shortness of breath. He states he is active. 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 He also works in [employer] and does not get discomfort with activities involved in that job. Currently has no complaints. Cannot recall prior stress test. States that he believes his father has some heart issues but really is not sure what they are how old he was when it began. Tobacco abuse. Alcohol abuse. Denies hypertension, hyperlipidemia, diabetes, and known CAD. He thinks his father may have some type of heart issues but really is not sure of the specifics. He drinks on average 1/2 pint of liquor twice a week. When he drinks he smokes more than usual but on average he smokes 1-2 cigars/day. Occasional marijuana. 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 - Diagnosis (1) Chest pain (2) Tobacco abuse (3) Alcohol abuse Review of Systems General: Patient denies fevers, chills, and recent travel. HEENT: Patient denies headache, sore throat, difficulty swallowing. Cardiovascular: Has the chest discomfort as mentioned above. Denies sensation of heart beating rapidly or irregularly. No syncope. Denies diaphoresis. Respiratory: Denies shortness of breath or inspirational chest discomfort. Denies coughing wheezing or hemoptysis. GI: Patient denies nausea, vomiting, diarrhea, abdominal pain, bloody stools. Musculoskeletal: Patient denies joint pain or edema. Denies calf pain or edema. Neurovascular: Patient denies numbness, tingling, weakness in extremities. Denies headache. Endocrine: Denies polyuria and polydipsia. Hematologic: Denies easy bruising. Skin: Denies rash or itching. PMFSH - History History Provided By: Patient - Medical History Medical History: Medical History (Last Reviewed 08/24/18 @ 23:39 by Hola Bartholomew Jr, RN) Chronic kidney disease - Surgical History Surgical History: Surgical History (Last Reviewed 08/24/18 @ 23:39 by Hola Bartholomew Jr, RN) No history of previous surgery - Tobacco History Second Hand Smoke Exposure: No Tobacco Use In Past 30 Days: Yes Smoking Status: Light tobacco smoker Tobacco Type: Cigars - Alcohol History How Often Do You Have a Drink Containing Alcohol: 2 to 3 times a week - Substance Use History Substance History: No History of Abuse - Travel History Recent Travel in the [facility] Within the Last 8 Weeks: No Recent Travel Out of the Country Within the Last 8 Weeks: No - Immunization History Tetanus Immunization: >5 Years Medications and Allergies Active Medications: Active Medications Sodium Chloride (Ns Flush) 2 ml IV.FLUSH BID SHELLY Sodium Chloride (Ns Flush) 2 ml IV.FLUSH PRN PRN PRN Reason: FLUSH AFTER USING IV ACCESS Allergies Allergy/AdvReac Type Severity Reaction Status Date / Time No Known Allergies Allergy Verified 08/24/18 20:27 Home Medications Medication Instructions Recorded Confirmed Type No Known Home Medications 08/24/18 08/24/18 History Exam Vital signs: Vital Signs 08/24/18 20:25 08/24/18 20:29 08/24/18 23:38 Temperature 98.2 F Pulse Rate 72 74 Respiratory Rate 17 16 Blood Pressure 161/69 H 134/60 147/79 H Pulse Oximetry 99 97 08/25/18 00:01 08/25/18 01:21 08/25/18 03:03 Temperature 98.4 F Pulse Rate 60 68 55 L Respiratory Rate 16 16 20 Blood Pressure 119/68 121/66 126/64 Pulse Oximetry 97 96 96 08/25/18 04:00 Temperature 97.9 F Pulse Rate 56 L Respiratory Rate 20 Blood Pressure 142/71 H Pulse Oximetry 96 Intake & Output 08/24/18 08/25/18 08/25/18 18:59 06:59 18:59 Weight 99.79 kg Other: Weight On Admission 99.79 kg Narrative: GENERAL: This is a well-nourished, well-developed patient, in no apparent distress. Patient speaks in clear complete sentences. Patient is pleasant. HEENT: Head is atraumatic and normocephalic. Neck is supple without lymphadenopathy and trachea is midline. No JVD or carotid bruits. CARDIOVASCULAR: Regular rate and rhythm without murmurs, gallops, or rubs. RESPIRATORY: Clear to auscultation. Breath sounds equal bilaterally. No wheezes , rales, or rhonchi. Chest wall is nontender. No use of accessory muscles. GASTROINTESTINAL: Abdomen is nontender, nondistended. Abdomen soft. No obvious pulsatile mass or bruit. No CVA tenderness. Strong femoral pulses bilaterally. Normal bowel sounds in all quadrants. MUSCULOSKELETAL: Patient is moving upper and lower extremities freely. No calf tenderness or edema, no Homans sign. Strong pulses in upper and lower extremities. NEUROLOGICAL: Patient is alert and oriented. Cranial nerves 2-12 are grossly intact. No focal deficits and speech is clear. SKIN: No rash and turgor is normal. Results 08/24/18 22:50 08/24/18 22:50 Cardiac Enzymes 08/24/18 08/25/18 08/25/18 Range/Units 22:50 02:00 04:52 AST 24 (15-37) U/L CK-MB (CK-2) 2.2 1.9 (0.5-3.6) ng/mL Troponin I Less than 0.02 L Less than 0.02 L Less than 0.02 L (0.02-0.05) ng/mL CBC 08/24/18 Range/Units 22:50 WBC 9.3 (4.0-11.0) th/mm3 RBC 4.94 (4.50-5.90) mil/mm3 Hgb 15.4 (13.0-17.0) gm/dL Hct 46.2 (39.0-51.0) % Plt Count 206 (150-450) th/mm3 Neut # (Auto) 3.4 (1.8-7.7) th/mm3 Lymph # (Auto) 4.9 H (1.0-4.8) th/mm3 Moore # (Auto) 0.8 (0.0-0.9) th/mm3 Eos # (Auto) 0.1 (0.0-0.4) th/mm3 Baso # (Auto) 0.0 (0.0-0.2) th/mm3 Comprehensive Metabolic Panel 08/24/18 Range/Units 22:50 Sodium 142 (136-145) meq/L Potassium 3.9 (3.5-5.1) meq/L Chloride 106 (98-107) meq/L Carbon Dioxide 25.5 (21.0-32.0) meq/L BUN 12 (7-18) mg/dL Creatinine 1.30 (0.60-1.30) mg/dL Calcium 8.8 (8.5-10.1) mg/dL AST 24 (15-37) U/L ALT 29 (12-78) U/L Alkaline Phosphatase 56 (45-117) U/L Total Protein 7.6 (6.4-8.2) g/dL Albumin 4.3 (3.4-5.0) g/dL Intake and Output 08/24/18 08/25/18 08/25/18 22:59 06:59 14:59 Other: Weight 99.79 kg 99.79 kg Weight On Admission 99.79 kg - Imaging and Cardiology Imaging: Impressions Chest X-Ray 08/25/18 00:02 CONCLUSION: No acute cardiopulmonary disease. EKG interpretations - EKG EKG shows: sinus rhythm (EKGs are sinus rhythm sinus bradycardia with a rate of 53 at the lowest without significant ST segment depressions or elevations.) Caprini VTE Risk Assessment Caprini VTE Risk Assessment: No/Low Risk (score <= 1) Caprini Risk Assessment Model: Point Value = 1 Point Value = 2 Point Value = 3 Point Value = 5 Age 41-60 Minor surgery BMI > 25 kg/m2 Swollen legs Varicose veins or History of unexplained or recurrent spontaneous Oral contraceptives or hormone replacement Sepsis (< 1 month) Serious lung disease, including pneumonia (< 1 month) Abnormal pulmonary function Acute myocardial infarction Congestive heart failure (< 1 month) History of inflammatory bowel disease Medical patient at bed rest Age 61-74 Arthroscopic surgery Major open surgery (> 45 min) Laparoscopic surgery (> 45 min) Malignancy Confined to bed (> 72 hours) Immobilizing plaster cast Central venous access Age >= 75 History of VTE Family history of VTE Factor V Leiden Prothrombin [id number] Lupus anticoagulant Anticardiolipin antibodies Elevated serum homocysteine Heparin-induced thrombocytopenia Other congenital or acquired thrombophilia Stroke (< 1 month) Elective arthroplasty Hip, pelvis, or leg fracture Acute spinal cord injury (< 1 month) Prophylaxis Regimen: Total Risk Factor Score Risk Level Prophylaxis Regimen 0-1 Low Early ambulation 2 Moderate Order ONE of the following: *Sequential Compression Device (SCD) *Heparin 5000 units SQ BID 3-4 Higher Order ONE of the following medications: *Heparin 5000 units SQ TID *Enoxaparin/Lovenox 40 mg SQ daily (WT < 150 kg, CrCl > 30 mL/min) *Enoxaparin/Lovenox 30 mg SQ daily (WT < 150 kg, CrCl > 10-29 mL/min) *Enoxaparin/Lovenox 30 mg SQ BID (WT < 150 kg, CrCl > 30 mL/min) AND/OR *Sequential Compression Device (SCD) 5 or more Highest Order ONE of the following medications: *Heparin 5000 units SQ TID (Preferred with Epidurals) *Enoxaparin/Lovenox 40 mg SQ daily (WT < 150 kg, CrCl > 30 mL/min) *Enoxaparin/Lovenox 30 mg SQ daily (WT < 150 kg, CrCl > 10-29 mL/min) *Enoxaparin/Lovenox 30 mg SQ BID (WT < 150 kg, CrCl > 30 mL/min) AND *Sequential Compression Device (SCD) Assessment and Plan - Assessment (1) Chest pain Code(s): R07.9 - Chest pain, unspecified Status: Acute (2) Tobacco abuse Code(s): Z72.0 - Tobacco use Status: Acute (3) Alcohol abuse Code(s): F10.10 - Alcohol abuse, uncomplicated Status: Acute - Plan * Chest pain: Patient has had serial cardiac enzymes and EKGs for ruling out purposes. Symptoms seem atypical but with family history of heart disease we will get a stress test. He was seen by Dr. Earl Valencia of cardiology in the chest pain center. He will undergo a Shoaib protocol ETT and if nonischemic will be discharged home with instructions to follow-up with PCP. Return to ED for interval issues. He needs to stop alcohol abuse. * Tobacco abuse: Patient counseled on importance of smoking cessation. * Alcohol abuse: Patient counseled importance of significantly decreasing if not quitting alcohol use. Patient is stable at this time. He is agreeable to this plan. H&P: Quality - VTE Deep Vein Thrombosis/Pulmonary Embolism Present on Admission: No
--- NOTE | 2018-08-25 15:28 | ECG ---
Date Performed: 08/25/2018 Time Performed: 01:53:31 PTAGE: 38 years EKG: Sinus rhythm WITH SINUS ARRHYTHMIA NORMAL ECG PREVIOUS TRACING : 07/31/2018 04.06 Since previous tracing, no significant change noted DOCTOR: Earl Valencia Interpretating Date/Time 08/25/2018 15:27:05
--- NOTE | 2018-08-25 15:29 | ECG ---
Date Performed: 08/24/2018 Time Performed: 22:52:46 PTAGE: 38 years EKG: Sinus rhythm WITH SINUS ARRHYTHMIA NORMAL ECG PREVIOUS TRACING : 07/31/2018 04.06 Since previous tracing, no significant change noted DOCTOR: Earl Valencia Interpretating Date/Time 08/25/2018 15:27:31
--- NOTE | 2018-08-25 15:30 | ECG ---
Date Performed: 08/25/2018 Time Performed: 06:29:02 PTAGE: 38 years EKG: SINUS BRADYCARDIA BORDERLINE ECG PREVIOUS TRACING : 08/25/2018 01.53 Since previous tracing, no significant change noted DOCTOR: Earl Valencia Interpretating Date/Time 08/25/2018 15:28:59
--- NOTE | 2018-08-25 15:33 | TR ---
Date Performed: 08/25/2018 Time Performed: 09:16:09 DOCTOR: Earl Valencia DRUG LIST: CLINICAL HISTORY: CHEST PAIN REASON FOR TEST: REASON FOR ENDING: OBSERVATION: CONCLUSION: MILES PROTOCOL. NO CP. TEST STOPPED AFTER MEETING GOAL HR SECONDARY TO SOB AND LEG F ATIGUE. EXCELLENT EXERCISSE TOLERANCE.Maximum IF=293 % Max HR Achieved=87.0% Maximum OK=838/76 Total Exercise Time=14:16 COMMENTS: Patient exercised using the Miles protocol. No electrocardiographic changes were seen to suggest ischemia. Hemodynamic response to exercise was normal. No significant arrhythmia was prese nt.
== END 2018-08-25 10:54 | disposition home or self-care (01) ==
LOC: NEPE 20:02 → NEDA 20:02 → NEPHCDU 08-25 02:27
PROVIDERS: ADMIT Internal Medicine Interventional Cardiology; ATTEND Internal Medicine Interventional Cardiology